=== PATIENT | female | born 1995 | race Caucasian/White ===

== ENCOUNTER 2016-03-04 12:01 | Emergency (ER) | payer BC ==
[~2016-03-04] VITALS: Ht 152.4 cm; Wt 56.9 kg
[2016-03-04 12:09] VITALS: TEMP 36.5; Ht 152.4 cm; Wt 56.9 kg
[2016-03-04] MEDS ORDERED: FLUO40CA8 PO (12:56)
[2016-03-04] MEDS ORDERED: SYN50 PO (12:56)
[2016-03-04] MEDS ORDERED: SODIUM CHLORIDE 0.9% 1000ML 1,000 ML IV STA (13:09)
[2016-03-04] MEDS ORDERED: ONDANSETRON INJ 2 MG/ML 2 ML VIAL IV STA (13:09)
[2016-03-04] MEDS ORDERED: MoRPHine SULFATE 10 MG/ML CARP/VIAL IV STA (13:09)
[2016-03-04 13:24] LABS: BASO % 0.4 %; BASO ABS # 0.03 K/uL (0-0.2); COMPLETE YES; EOS % 0.5 %; HEMATOCRIT 39.4 % (37-47); IG% 0.1 %; LYMPH % 14.8 %; LYMPH ABS # 1.27 K/uL (1.2-3.4); MEAN CELL VOLUME 92.5 fL (80-100); MEAN CORPUSCULAR HEMOGLOBIN 33.8 pg (25-34); MEAN CORPUSCULAR HGB CONC 36.5 g/dl (32-36); MEAN PLATELET VOLUME 9.9 fL (7.4-10.4); NEUT % 78.2 %; PLATELET COUNT 212 K/uL (130-400); RED BLOOD COUNT 4.26 M/uL (4.2-5.4); WHITE BLOOD COUNT 8.56 K/uL (4.8-10.8)
[2016-03-04 13:33] LABS: ALT/SGPT 118 U/L (12-78); BLOOD UREA NITROGEN 12 mg/dl (7-18); BUN/CREATININE RATIO 15.1 (10-20); CALCIUM 9.6 mg/dl (8.5-10.1); CARBON DIOXIDE 23 mmol/L (21-32); CHLORIDE 104 mmol/L (98-107); CREATININE 0.81 mg/dl (0.60-1.20); GLUCOSE 110 mg/dl (70-99); POTASSIUM 3.4 mmol/L (3.5-5.1); SODIUM 140 mmol/L (136-145)
[2016-03-04 13:36] LABS: ALB/GLOB RATIO 1.3 (0.9-2); ALKALINE PHOSPHATASE 92 U/L (45-117); AST/SGOT 58 U/L (15-37)
[2016-03-04 13:44] LABS: URINE APPEARANCE TURBID (CLEAR); URINE BILIRUBIN NEG (NEG); URINE COLOR YELLOW; URINE EPITHELIAL CELL AUTO >30 /lpf (0-5); URINE NITRITE NEG (NEG); URINE PH 8.5 (4.5-7.5); URINE SPECIFIC GRAVITY 1.021 (1.000-1.030); UROBILINOGEN NEG (NEG)
[2016-03-04 13:45] LABS: PREG INTERNAL NEGATIVE QC NEG CLEAR BACKGROUND; PREG INTERNAL POSITIVE QC POS CONTROL LINE
[2016-03-04 13:49] LABS: MANUAL MICROSCOPIC REQUIRED? NO; REVIEW REQ? NO
--- NOTE | 2016-03-04 14:08 | DIAGNOSTIC IMAGING REPORT ---
CT SCAN OF THE ABDOMEN AND PELVIS WITHOUT CONTRAST CLINICAL HISTORY: Right flank pain hematuria. COMPARISON STUDY: No previous studies for comparison. TECHNIQUE: CT scan of the abdomen and pelvis was performed from the lung bases to the proximal femurs. Images are reviewed in the axial, sagittal, and coronal planes. IV contrast was not administered for this examination. CT DOSE: 400.83 mGycm FINDINGS: Lower chest: The heart is normal in size and configuration, without pericardial effusion. The lung bases and pleural spaces are clear. Liver: The unenhanced liver is normal in size, contour, and attenuation. There is no intrahepatic biliary ductal dilatation. Gallbladder: Unremarkable. Spleen: Normal in size and attenuation. Pancreas: Unremarkable. Adrenal glands: Unremarkable. Kidneys: There is mild fullness the right renal collecting system and right ureter. There is a 1.5 mm calculus at the level the right ureterovesical junction. No left renal calculi are visualized. Bowel: There are no transition zones indicate bowel obstruction. There is no evidence of acute appendicitis. There is no subacute diverticulitis. Peritoneum: There is no intraperitoneal free air or abdominal ascites. Vasculature: The abdominal aorta is normal in course and caliber. Adenopathy: None. Pelvic viscera: The bladder, and pelvic viscera are unremarkable. Skeletal structures: No destructive osseous lesions are seen. IMPRESSION: 1. 1.5 mm calculus at the level of the right ureterovesical junction with mild secondary obstructive changes. Electronically signed by: Sam Coto M.D. 03/04/2016 2:06 PM Dictated Date/Time: 03/04/2016 2:02 PM
[2016-03-04 15:12] LABS: URINE APPEARANCE CLEAR (CLEAR); URINE BILIRUBIN NEG (NEG); URINE COLOR YELLOW; URINE NITRITE NEG (NEG); URINE PH 7.5 (4.5-7.5); URINE SPECIFIC GRAVITY 1.007 (1.000-1.030); UROBILINOGEN NEG (NEG)
[2016-03-04 15:17] LABS: MANUAL MICROSCOPIC REQUIRED? NO; REVIEW REQ? NO
[2016-03-04] MEDS ORDERED: HYDR-5688 PO ×2 (15:31→15:46)
[2016-03-04 15:44] VITALS: BP 90/55; PULSE 78; O2SAT 98
--- NOTE | 2016-03-06 09:30 | EMERGENCY ROOM VISIT NOTE ---
ED Visit Note First contact with patient: 12:45 Chief Complaint: Abdominal pain and dizziness. History of Present Illness: Ms. Salmon is a 20 year-old white female complaining of right lateral abdominal pain. Historically patient reports history of GERD. Patient reports an acute onset of severe right-sided abdominal pain approximately 3 [address] the majority of her discomfort over the lateral aspect in the mid quadrant area. She rates her discomfort 7/10. Her pain has been constant since its onset but has slightly waxed and waned in intensity. The pain is radiating into the right flank and into the right lower quadrant. She has not identified any aggravating or alleviating factors related to the pain. She has not taken any medications for pain prior to arrival at the hospital. Associated with her pain she reports that becomes severe she has some dizziness and that intermittently she has been nauseated but has not vomited. Patient denies fevers, chills, sweats, skin eruptions, skin color changes, upper respiratory tract symptoms, shortness of breath, chest pain, diarrhea, constipation, rectal bleeding, black/tarry stools, urinary symptoms, hematuria, vaginal bleeding, vaginal discharge, genital paresthesias, bowel and bladder dysfunction, lower extremity weakness/numbness/tingling. Review of Systems: As noted above in history of present illness. All body systems were reviewed and found to be negative as noted above. Past Medical History: As previously noted, asthma, bronchitis, hypothyroidism and status post wisdom teeth extraction. Current Medications: Prozac, Synthroid Allergies to Medications: Lactose intolerance. Social History: Patient is currently University student; she feels safe in her home environment; she denies tobacco use; she admits to alcohol use. Physical Examination: Vital Signs: Date Time Temp Pulse Resp B/P Pulse Ox O2 Delivery O2 Flow Rate FiO2 03/04/16 15:44 78 18 90/55 98 03/04/16 14:30 80 16 89/55 99 03/04/16 12:09 36.5 95 18 100/68 99 Room Air GENERAL: 20-year-old female in moderate distress due to pain, nontoxic-appearing , afebrile and hemodynamically stable. NEUROLOGICAL: Awake, alert and oriented to person, place and time. Answering questions appropriately and following commands. Normal gait. Good hand eye coordination. SKIN: Warm, dry and pink. No soft tissue eruptions or trauma noted. HEENT: Atraumatic and normocephalic. PERRL. Sclera white and conjunctiva pink. Oral cavity moist and pink. Pharynx is nonerythematous or edematous. Speech normal. No lymphadenopathy. Trachea midline. No jugular venous distention. BACK: No tenderness over the bony spine. No CVA tenderness. THORAX: Lungs sounds are clear to auscultation and equal bilaterally with symmetrical chest wall. No wheezing, rales or rhonchi. No crepitus, tenderness , subcutaneous air or deformities noted. HEART: Regular rate and rhythm. No gallops, rubs or murmurs are appreciated. ABDOMEN: Flat and soft with mild tenderness in the right upper quadrant and moderate tenderness over the lateral mid quadrant area and right lower quadrant just superior to McBurney's point. Bowel sounds present in all quadrants. No guarding, rigidity or organomegaly. EXTREMITIES: Moves all extremities well on command and with purpose. All distal neurovascular statuses are intact and equal bilaterally. ED Course: Patient is assessed as noted above. Laboratory Testing: Test 03/04/16 12:55 03/04/16 14:50 Range/Units White Blood Count 8.56 4.8-10.8 K/uL Red Blood Count 4.26 4.2-5.4 M/uL Hemoglobin 14.4 12.0-16.0 g/dL Hematocrit 39.4 37-47 % Mean Corpuscular Volume 92.5 80-100 fL Mean Corpuscular Hemoglobin 33.8 25-34 pg Mean Corpuscular Hemoglobin Concent 36.5 32-36 g/dl Platelet Count 212 130-400 K/uL Mean Platelet Volume 9.9 7.4-10.4 fL Neutrophils (%) (Auto) 78.2 % Lymphocytes (%) (Auto) 14.8 % Monocytes (%) (Auto) 6.0 % Eosinophils (%) (Auto) 0.5 % Basophils (%) (Auto) 0.4 % Neutrophils # (Auto) 6.70 1.4-6.5 K/uL Lymphocytes # (Auto) 1.27 1.2-3.4 K/uL Monocytes # (Auto) 0.51 0.11-0.59 K/uL Eosinophils # (Auto) 0.04 0-0.5 K/uL Basophils # (Auto) 0.03 0-0.2 K/uL RDW Standard Deviation 41.3 36.4-46.3 fL RDW Coefficient of Variation 12.2 11.5-14.5 % Immature Granulocyte % (Auto) 0.1 % Immature Granulocyte # (Auto) 0.01 0.00-0.02 K/uL Urine Color YELLOW YELLOW Urine Appearance TURBID CLEAR CLEAR Urine pH 8.5 7.5 4.5-7.5 Urine Specific [place] 1.021 1.007 1.000-1.030 Urine Protein NEG NEG NEG Urine Glucose (UA) NEG NEG NEG Urine Ketones NEG NEG NEG Urine Occult Blood 2+ 1+ NEG Urine Nitrite NEG NEG NEG Urine Bilirubin NEG NEG NEG Urine Urobilinogen NEG NEG NEG Urine Leukocyte Esterase TRACE NEG NEG Urine WBC (Auto) 5-10 1-5 0-5 /hpf Urine RBC (Auto) 10-30 0-4 0-4 /hpf Urine Hyaline Casts (Auto) 1-5 0 0-5 /lpf Urine Epithelial Cells (Auto) >30 10-20 0-5 /lpf Urine Bacteria (Auto) 2+ NEG NEG Sodium Level 140 136-145 mmol/L Potassium Level 3.4 3.5-5.1 mmol/L Chloride Level 104 98-107 mmol/L Carbon Dioxide Level 23 21-32 mmol/L Anion Gap 13.0 3-11 mmol/L Blood Urea Nitrogen 12 7-18 mg/dl Creatinine 0.81 0.60-1.20 mg/dl Est Creatinine Clear Calc Drug Dose 87.6 ml/min Estimated GFR () 121.2 Estimated GFR (Non- 104.6 BUN/Creatinine Ratio 15.1 10-20 Random Glucose 110 70-99 mg/dl Calcium Level 9.6 8.5-10.1 mg/dl Total Bilirubin 0.3 0.2-1 mg/dl Direct Bilirubin < 0.1 0-0.2 mg/dl Aspartate Amino Transf (AST/SGOT) 58 15-37 U/L Alanine Aminotransferase (ALT/SGPT) 118 12-78 U/L Alkaline Phosphatase 92 45-117 U/L Total Protein 7.6 6.4-8.2 gm/dl Albumin 4.3 3.4-5.0 gm/dl Globulin 3.3 2.5-4.0 gm/dl Albumin/Globulin Ratio 1.3 0.9-2 Lipase 117 73-393 U/L Human Chorionic Gonadotropin, Qual NEG NEG Noncontrast Abdominal/Pelvic CT: Was read by myself and the radiologist showing a 1.5 mm calculus at the right UVJ with mild obstructive changes. No inflammation and a normal-appearing appendix. Patient was hydrated with normal saline, she received 6 mg of morphine IV and 4 mg of Zofran IV. Patient was reassessed multiple times during her stay in the emergency department. Patient's case was reviewed with Dr. Espino; we agreed on diagnostic approach treatment, disposition and plan. Patient and father were educated about win's findings and instructed on her treatment plan; they verbalizes understanding and agreement with this plan. Clinical Impression: Right ureter calculus. Decision-Making: Initially my differential diagnosis I considered your calculus , pyelonephritis, acute appendicitis, hepatitis, cholecystitis, bowel obstruction, constipation and other causes. Disposition: Patient discharged home in stable condition accompanied by her father; prior to departure she was reassessed and subjectively reported she was feeling much better and rated her discomfort 3/10. Plan: Patient was put on a sliding pain scale of ibuprofen, acetaminophen and [place] as needed. Patient was encouraged to stay well-hydrated with increased clear fluids. Patient was encouraged to strain all urine and collect all stones for analysis. Patient was encouraged to follow-up with urology for definitive care and treatment. Patient was encouraged return ED for worsening/uncontrolled pain, fevers, uncontrolled vomiting, UTI symptoms or any new/concerning symptoms.
== END 2016-03-04 15:57 | disposition home or self-care (01) ==
LOC: C.EDB 12:03
DX: N20.1 Calculus of ureter (principal); E03.9 Hypothyroidism, unspecified; J45.909 Unspecified asthma, uncomplicated; Z79.899 Other long term (current) drug therapy; Z91.011 Allergy to milk products